=== PATIENT | male | born 2005 | race Hispanic/Latino ===

== ENCOUNTER 2024-11-25 18:40 | Emergency (ER) | payer OTHER ==
[~2024-11-25] VITALS: Ht 170.2 cm; Wt 88.5 kg
[2024-11-25 19:05] VITALS: PULSE 80; RESP 17; TEMP 98.9; O2SAT 100
[2024-11-25] MEDS ORDERED: AMOX TR-K CLV1 EAC2 PO (21:11)
[2024-11-25] MEDS: TETANUS/DIPHTHERIA TOX ADULT 0.5 ML SYR IM ONE (21:27)
== END 2024-11-25 21:33 | disposition home or self-care (01) ==
LOC: ER 21:05
DX: S60.871A Other superficial bite of right wrist, initial encounter (principal); S60.372A Other superficial bite of left thumb, initial encounter; W54.0XXA Bitten by dog, initial encounter; Y92.89 Other specified places as the place of occurrence of the external cause; F17.210 Nicotine dependence, cigarettes, uncomplicated
CPT/HCPCS: 90471; 90714; 99283